=== PATIENT | male | born 1975 | race Caucasian/White ===

== ENCOUNTER 2023-08-04 11:25 | Emergency (ER) | payer BC, SELFPAY ==
[2023-08-04 11:30] VITALS: BP 157/109
[2023-08-04 11:56] LABS: % Basophils 0.4 % (0-2); % Eosinophils 0.3 % (0-6); % Immature Granulocytes 0.2 % (0-0.5); % Lymphocytes 17.4 % (20.5-51.1); % Monocytes 7.4 % (1.7-9.3); % Neutrophils 74.3 % (42.2-75.2); Absolute Monocytes 0.8 10^3/uL (0.1-0.6); Absolute Neutrophils 8.4 10^3/uL (1.4-6.5); Hematocrit 45.8 % (39.0-52.0); Hemoglobin 15.9 g/dL (13.0-18.0); Mean Corp Hgb Conc. 34.7 g/dL (33.0-37.0); Mean Corpuscular Hgb 29.9 pg (27.0-31.0); Mean Corpuscular Volume 86.3 fL (80.0-94.0); Mean Platelet Volume 10.3 fL (7.4-10.4); Nucleated Red Blood Cells % 0 % (-); Platelet Count 242 10^3/uL (130-400); Red Blood Cell Count 5.31 10^6/uL (4.70-6.10); Red Cell Dist. Width 12.8 % (11.5-14.5); White Blood Cell Count 11.3 10^3/uL (4.8-10.8)
[2023-08-04 12:30] LABS: ALT (SGPT) 21 U/L (0-50); AST (SGOT) 25 U/L (17-59); Alkaline Phosphatase 73 U/L (38-126); Blood Urea Nitrogen 13 mg/dl (9-20); Calcium 9.8 mg/dl (8.4-10.2); Carbon Dioxide 27 mmol/L (22-30); Chloride 103 mmol/L (98-107); Glucose 136 mg/dl (70-99); Potassium 4.8 mmol/L (3.5-5.1); Sodium 137 mmol/L (135-145); Total Bilirubin 1.5 mg/dl (0.2-1.3); eGFR > 60.00
--- NOTE | 2023-08-04 12:49 | ED.GENMED ---
History of Present Illness
General
Chief Complaint: Male Genito-Urinary Symptoms
Time Seen by Provider: 08/04/23 12:45
Travel History
Have you had any contact with someone who has COVID-19?: No
Do you have any symptoms of coronavirus? Fever > 100 degrees, chills, cough, shortness of breath, sore throat, loss of taste or smell, muscle aches, or headache?: No
History of Present Illness
History of Present Illness:
47-year-old male presents to the emergency department for evaluation of pain to the right testicle radiating into the right groin. He states that he developed the symptoms several weeks ago and was treated initially with an 18-day course of
doxycycline and then ultimately an 18-day course of levofloxacin. He states that doctor diagnosed him with 'E. coli' but he is not certain regarding whether this was a positive urine culture. He did not have any outpatient imaging. Pain radiates
down the right leg into the right abdomen. He also notes pain with ejaculation, no fevers or chills
Review of Systems
Review of Systems
Allergies reviewed?: Yes
All Other Systems: ROS reviewed and negative except as documented in HPI and ROS
Phy Exam
Physical Exam
Physical Exam:
GEN: Well appearing, NAD, WDWN
HEENT: Oral mucosa moist, no scleral icterus
Cardiac: Regular rate
Lung: No respiratory distress, no tachypnea
: Significant tenderness to the right testicle and epididymis, no obvious swelling or masses, no inguinal masses or hernias palpated
MSK: No gross deformity or injuries
Skin: Good color, no pallor or jaundice, no rashes
Neuro: AO x3, moves all extremities freely
Psych: Calm, cooperative
Course
Orders/Labs/Results
Orders:
Orders
08/04/23 11:42
Complete Blood Count/With Diff Urgent
Comprehensive Metabolic Panel Urgent
08/04/23 12:43
Urinalysis Reflex To Culture Urgent
Date Specimen was Collected: 08/04/23
Time Specimen was Collected: 11:34
08/04/23 13:32
US Scrotum Urgent
Comment:
Reason For Exam: R testicular pain
Abnormal Lab Results
08/04/23
11:42
WBC 11.3 H 10^3/uL
(4.8-10.8)
Absolute Neuts (auto) 8.4 H 10^3/uL
(1.4-6.5)
Absolute Monos (auto) 0.8 H 10^3/uL
(0.1-0.6)
Lymphocytes % 17.4 L %
(20.5-51.1)
Glucose 136 H mg/dl
(70-99)
Total Bilirubin 1.5 H mg/dl
(0.2-1.3)
08/04/23 11:42
08/04/23 11:42
Vital Signs
Initial and Last Documented VS:
Initial Vital Signs
Temp Pulse Resp BP Pulse Ox
97.8 F 109 18 157/109 98
08/04/23 11:30 08/04/23 11:30 08/04/23 11:30 08/04/23 11:30 08/04/23 11:30
Last Documented Vital Signs
Temp Pulse Resp BP Pulse Ox
97.8 F 109 18 159/109 98
08/04/23 11:30 08/04/23 11:30 08/04/23 11:30 08/04/23 15:39 08/04/23 11:30
MDM/Problems Addressed
MDM/Problems Addressed:
Exam is remarkable for focal right epididymal and testicular tenderness. Follow-up ultrasound is unremarkable. May be persistent inflammatory process in the setting of recent epididymitis. Would favor not placing the patient back on antibiotics.
Recommend outpatient urology follow-up. He has no focal abdominal tenderness and the fact that he has such focal testicular tenderness as well as pain with ejaculation would suggest a source as opposed to intra-abdominal
*Critical Care Note
Total Time (30-74mins, 75-104mins- exclusive of procedures): Not Applicable
ED Attending Note
-
Portions of this chart may have been created with voice recognition software.� Occasional wrong word or��sound alike� substitutions may have occurred due to the inherent limitations of voice recognition software.
Discharge Plan
Departure
Patient Disposition: Home (Routine Discharge)
Date of Disposition: 08/04/23
Time of Disposition: 15:31
Patient with high blood pressure during this ER visit?: No
Discharge Problem:
Pain in right testicle
Instructions: Epididymitis (DC)
Prescriptions:
New
ketorolac 10 mg tablet
10 mg PO Q6H 5 Days Qty: 20 0RF
Rx Instructions:
maximum total duration of 5 days from all oral, intranasal, or parenteral formulations
Referrals:
Alf Amezcua DO [Family Provider] -
Mikhail Srinivasan Jr., MD [Active] -
Activity Restrictions/Additional Instructions:
The cause of your pain is not clear
I am prescribing you an anti inflammatory for pain control
Please follow up with urology
Interventions
Interventions:
*Risk Screen - Suicide Last Done: 08/04/23 13:48
*General Assessment Last Done: 08/04/23 11:30
*Neglect/Abuse Screening Last Done: 08/04/23 11:30
*ED COVID-19 Vaccine History Last Done: 08/04/23 11:30
*Nursing Disposition Last Done: 08/04/23 15:39
ED-Male Genitourinary Assessment Last Done: 08/04/23 13:48
Discharge Date and Time
Discharge Date/Time: 08/04/23 15:40
[2023-08-04 12:56] LABS: Urine Albumin Negative (Neg - Trace); Urine Bilirubin Negative (Negative); Urine Character Clear (Clear); Urine Color Yellow; Urine Glucose Negative (Negative); Urine Ketone Negative (Negative); Urine Leukocyte Negative (Negative); Urine Nitrite Negative (Negative); Urine Occult Blood Negative (Negative); Urine Urobilinogen Negative (Neg - 1+)
[2023-08-04 15:39] VITALS: BP 159/109
== END 2023-08-04 15:40 | disposition home or self-care (01) ==
LOC: EMR 11:25
PROVIDERS: Emergency Medicine; EMERGENCY PHYSICIAN Emergency Medicine; FAMILY PHYSICIAN Family Medicine Sports Medicine
DX: N50.811 Right testicular pain (principal)
CPT/HCPCS: 99284; 76870; 80053; 81003; 85025; 93976

== ENCOUNTER → 2023-08-06 07:45 | Outpatient (REF) | payer BC, SELFPAY | LOC: RAD 07:45 | PROVIDERS: ATTENDING PHYSICIAN Family Medicine Sports Medicine | DX: N43.3 Hydrocele, unspecified (principal); R10.9 Unspecified abdominal pain | CPT/HCPCS: 76882 ==

== ENCOUNTER → 2023-08-24 08:54 | Outpatient (REF) | payer BC, SELFPAY | LOC: HWRAD 08:54 | PROVIDERS: ATTENDING PHYSICIAN Family Medicine Sports Medicine | DX: R30.0 Dysuria (principal) | CPT/HCPCS: 76770 ==

== ENCOUNTER → 2024-02-18 08:04 | Outpatient (REF) | payer BC, SELFPAY | LOC: HWRCS 08:04 | PROVIDERS: ATTENDING PHYSICIAN Internal Medicine Cardiovascular Disease; FAMILY PHYSICIAN Family Medicine Sports Medicine | DX: R55 Syncope and collapse (principal); R42 Dizziness and giddiness; R07.89 Other chest pain | CPT/HCPCS: 93306 ==

== ENCOUNTER → 2024-03-03 07:59 | Outpatient (REF) | payer BC, SELFPAY | LOC: MRI 07:59 | PROVIDERS: ATTENDING PHYSICIAN Psychiatry & Neurology Neurology; FAMILY PHYSICIAN Family Medicine Sports Medicine | DX: R55 Syncope and collapse (principal); R51.9 Headache, unspecified | CPT/HCPCS: 70553; A9575 ==

== ENCOUNTER → 2024-03-06 08:42 | Outpatient (REF) | payer BC, SELFPAY | LOC: RCS 08:42 | PROVIDERS: ATTENDING PHYSICIAN Internal Medicine Cardiovascular Disease; FAMILY PHYSICIAN Family Medicine Sports Medicine | DX: R55 Syncope and collapse (principal); R42 Dizziness and giddiness; R07.89 Other chest pain | CPT/HCPCS: 93017 ==